=== PATIENT | male | born 1990 | race Caucasian/White ===

== ENCOUNTER 2020-07-02 09:46 | Emergency (ER) | payer OTHER ==
[~2020-07-02] VITALS: Ht 167.6 cm; Wt 75.0 kg
[2020-07-02 12:05] VITALS: BP 115/71
[2020-07-02] MEDS ORDERED: CefTRIAXone SODIUM 1 GM/VIAL IM ONE (12:15)
[2020-07-02] MEDS ORDERED: DOXYCYCLINE HYCLATE 100 MG TABLET PO ONE (12:15)
[2020-07-02 12:30] LABS: APPEARANCE,URINE CLOUDY (CLEAR); BILIRUBIN,URINE NEGATIVE (NEGATIVE); GLUCOSE, URINE (UA) NEGATIVE (NEGATIVE); KETONES,URINE NEGATIVE (NEGATIVE); LEUKOCYTE ESTERASE ,URINE LARGE (NEGATIVE); NITRATE,URINE NEGATIVE (NEGATIVE); OCCULT BLOOD,URINE TRACE (NEGATIVE); PH,URINE 7.5 (5.0-8.0); PROTEIN,URINE NEGATIVE (NEGATIVE)
[2020-07-02 12:35] LABS: BACTERIA,URINE Few /HPF (None Seen); RBC,URINE 0-2 /HPF (0-2); WBC,URINE 51-100 /HPF (0-5)
== END 2020-07-02 12:45 | disposition home or self-care (01) ==
LOC: EMS 09:48
DX: N45.2 Orchitis (principal); N45.1 Epididymitis; A64 Unspecified sexually transmitted disease
CPT/HCPCS: 76870; 81001; 87086; 87491; 87591; 96372; 99284; J0696